=== PATIENT | female | born 1995 | race Caucasian/White ===

== ENCOUNTER → 2021-09-20 | Outpatient (CLI) | payer OTHER ==
[~2021-09-20] MED LIST: COLACE 100MG C100 MG PO; TRI-SPRINTEC T1 EACH PO
== END ==
LOC: HEART 5 10:21
DX: R07.9 Chest pain, unspecified (principal); Z86.16 Personal history of COVID-19; R00.2 Palpitations; I08.1 Rheumatic disorders of both mitral and tricuspid valves
CPT/HCPCS: 93306

== ENCOUNTER → 2021-10-19 | Outpatient (CLI) | payer OTHER | LOC: KOH-I 10-16 10:45 | DX: M25.851 Other specified joint disorders, right hip (principal); R93.6 Abnormal findings on diagnostic imaging of limbs | CPT/HCPCS: 73721 ==